=== PATIENT | male | born 1950 | race Caucasian/White ===

== ENCOUNTER → 2018-01-22 | Day surgery (SDC) | payer MEDICARE, OTHER ==
[~2018-01-22] MED LIST: ALBUTEROL SULFATE 2.5 MG/3 ML NEBU. NEB PRN; ATROPINE 0.5 MG/5 ML DISP.SYRIN. IV PRN; LIDOCAINE 2% PF Vial for OR 5 ML VIAL. ONE; LISI10TA2 PO; NALOXONE 0.4 MG/ML VIAL. IV PRN; ONDANSETRON PF 4 MG/2 ML VIAL. IV PRN; OXYC10TA57 PO; PANT40TA5 PO; PROPOFOL 40 ML IV ONE; TRAZ-85 PO
[2018-01-22] MEDS: IV RINGERS SOLUTION,LACTATED 1,000 ML IV SCH ×2 (07:24→10:50)
[2018-01-22 13:07] VITALS: BP 136/83
== END | disposition home or self-care (01) ==
LOC: SURG 10:00
PROVIDERS: ATTEND Internal Medicine Gastroenterology
DX: K57.30 Diverticulosis of large intestine without perforation or abscess without bleeding (principal); I10 Essential (primary) hypertension; Z98.890 Other specified postprocedural states; Z79.899 Other long term (current) drug therapy
CPT/HCPCS: 45380; J2704; J7120; J2001

== ENCOUNTER → 2018-04-01 | Outpatient (CLI) | payer MEDICARE, OTHER ==
[2018-01-22 13:07] VITALS: BP 136/83
[~2018-04-01] MED LIST changes: -ALBUTEROL SULFATE 2.5 MG/3 ML NEBU. NEB PRN; -ATROPINE 0.5 MG/5 ML DISP.SYRIN. IV PRN; +IOHEXOL 240 MG/ML 50ML VIAL. ONE; -LIDOCAINE 2% PF Vial for OR 5 ML VIAL. ONE; -NALOXONE 0.4 MG/ML VIAL. IV PRN; -ONDANSETRON PF 4 MG/2 ML VIAL. IV PRN; -PROPOFOL 40 ML IV ONE
[2018-04-01 09:24] LABS: CREATININE 1.1 mg/dL (0.7-1.3); GFR 66.4
[2018-04-01] MEDS: IOHEXOL 300 MG/ML 75 ML VIAL. IV ONE (09:27)
[2018-04-01] MEDS: IOHEXOL 240 MG/ML 50ML VIAL. PO ONE (09:28)
--- NOTE | 2018-04-01 10:36 | RAD ---
Indication:PAIN/LUMP IN LEFT GROIN MEDIAL LEG NEAR SYMPHYSIS. PAIN EXTENDS UP INTO PELVIS NEAR PELVIC RIM.LUMP HAS NOT GOTTEN LARGER BUT AREA IS MORE PAINFUL OVER THE LAST FOUR MONTHS. TWO HERNIA SURGERIES DONE IN 2016 TECHNIQUE: CT abdomen and pelvis with IV contrast with multiplanar reformats. COMPARISON: None FINDINGS: Heart is normal in size. No pericardial or pleural effusion. Clear lung bases. Liver, spleen, pancreas, adrenals within normal limits. Gallstones noted. No pericholecystic fluid or inflammatory changes. No nephrolithiasis or hydronephrosis. No enlarged retroperitoneal or pelvic adenopathy. No free pelvic fluid or ascites. There is mild diffuse wall thickening of the distal colon from the level of transverse colon to rectosigmoid colon. Fat-containing left inguinal hernia measuring 3.9 x 3.0 cm. Enlarged prostate measuring 5.1 x 4.1 cm. Urinary bladder demonstrates no radiopaque stone or focal lesion. No suspicious bony lesion. IMPRESSION: 1. Small fat-containing left inguinal hernia. 2. Mild diffuse long segment wall thickening of the distal colon which may be secondary to collapsed state or mild colitis. Correlate with symptoms. 3. Cholelithiasis without imaging evidence of acute cholecystitis. 4. Mildly enlarged prostate. Correlate with physical exam and PSA. Electronically signed by: Ruddy Porter DO (04/01/2018 10:31 AM) [id number]
== END | disposition home or self-care (01) ==
LOC: CT 08:07
PROVIDERS: ATTEND Surgery
DX: K40.90 Unilateral inguinal hernia, without obstruction or gangrene, not specified as recurrent (principal); K80.20 Calculus of gallbladder without cholecystitis without obstruction; N40.0 Benign prostatic hyperplasia without lower urinary tract symptoms; I10 Essential (primary) hypertension
CPT/HCPCS: 36415; 74177; 82565; Q9966; Q9967

== ENCOUNTER → 2018-04-09 | Day surgery (SDC) | payer MEDICARE, OTHER ==
[~2018-04-09] MED LIST changes: +ALBUTEROL SULFATE 2.5 MG/3 ML NEBU. NEB PRN; +ATROPINE 0.5 MG/5 ML DISP.SYRIN. IV PRN; -IOHEXOL 240 MG/ML 50ML VIAL. ONE; +IV RINGERS SOLUTION,LACTATED 1,000 ML IV SCH; +LIDOCAINE 2% PF Vial for OR 5 ML VIAL. ONE; +NALOXONE 0.4 MG/ML VIAL. IV PRN; +ONDANSETRON PF 4 MG/2 ML VIAL. IV PRN; +PROPOFOL 40 ML IV ONE; +TRAZ-120 PO; -TRAZ-85 PO; +diphenhydrAMINE 50 MG/ML VIAL IV PRN
[2018-04-09 11:47] VITALS: BP 144/55
== END | disposition home or self-care (01) ==
LOC: SURG 09:34
PROVIDERS: ATTEND Internal Medicine Gastroenterology
DX: R14.0 Abdominal distension (gaseous) (principal); R10.10 Upper abdominal pain, unspecified; R19.7 Diarrhea, unspecified; I10 Essential (primary) hypertension; Z79.899 Other long term (current) drug therapy; Z90.49 Acquired absence of other specified parts of digestive tract; Z98.890 Other specified postprocedural states; Z87.19 Personal history of other diseases of the digestive system
CPT/HCPCS: 43239; J2704; J7120; J2001

== ENCOUNTER → 2018-05-17 | Outpatient (CLI) | payer MEDICARE, OTHER ==
[2018-04-09 11:47] VITALS: BP 144/55
[~2018-05-17] MED LIST changes: -ALBUTEROL SULFATE 2.5 MG/3 ML NEBU. NEB PRN; -ATROPINE 0.5 MG/5 ML DISP.SYRIN. IV PRN; -IV RINGERS SOLUTION,LACTATED 1,000 ML IV SCH; -LIDOCAINE 2% PF Vial for OR 5 ML VIAL. ONE; -NALOXONE 0.4 MG/ML VIAL. IV PRN; -ONDANSETRON PF 4 MG/2 ML VIAL. IV PRN; -PROPOFOL 40 ML IV ONE; -diphenhydrAMINE 50 MG/ML VIAL IV PRN
--- NOTE | 2018-05-17 14:32 | RAD ---
Indication:Upper abdominal pain and diarrhea. TECHNIQUE: Grayscale, color Doppler and spectral waveform is of the abdomen obtained. COMPARISON:None FINDINGS: Visualized pancreas is within normal limits. Pancreatic tail not visualized during bowel gas. No aortic aneurysm. IVC within normal limits. Gallstones noted. No pericholecystic fluid or gallbladder wall thickening. Main portal vein is patent with hepatopedal flow. CBD measures 4 mm in diameter and is within normal limits. Liver measures 14 cm in longest dimension and is normal in size with diffuse increased echogenicity. Right kidney measures 10 cm in length without hydronephrosis. Left kidney measures 11 cm in length without hydronephrosis. Spleen measures 10 cm in length and is normal in size. IMPRESSION: 1. Cholelithiasis without imaging evidence of acute cholecystitis. 2. Mild hepatic steatosis. Electronically signed by: Ruddy Porter DO (05/17/2018 2:29 PM) [facility]
== END | disposition home or self-care (01) ==
LOC: US 08:29
PROVIDERS: ATTEND Internal Medicine Gastroenterology
DX: K80.20 Calculus of gallbladder without cholecystitis without obstruction (principal); K76.0 Fatty (change of) liver, not elsewhere classified; R19.7 Diarrhea, unspecified
CPT/HCPCS: 76700

== ENCOUNTER → 2018-09-06 | Outpatient (CLI) | payer MEDICARE, OTHER ==
[2018-04-09 11:47] VITALS: BP 144/55
[~2018-09-06] MED LIST changes: +BARIUM SULFATE 60% 355 ML SUSP PO ONE
--- NOTE | 2018-09-06 15:42 | RAD ---
Examination: SMALL BOWEL SERIES History: Chronic diarrhea Comparison/Correlation: 04/01/2018 CT abdomen and pelvis with oral contrast Findings: Assistant Nurse Manager views were obtained. Right upper quadrant surgical clips and suture material are present. Right lower pelvic mildly distended small bowel loop is present. Oral contrast was administered. On the initial image with the patient prone, contrast is identified to already been the right lower quadrant within jejunum. Contrast reaches the hepatic flexure of the colon by 40 minutes. Distention of small bowel is normal. No suspicious filling defects. No significant distention to suggest obstruction. Impression: No obstruction. No suspicious filling defects. Ascending colon is not seen. Correlate with surgical history. Electronically signed by: Henri Hdz MD (09/06/2018 3:39 PM) [facility]
== END | disposition home or self-care (01) ==
LOC: RAD 08:09
PROVIDERS: ATTEND Internal Medicine Gastroenterology
DX: K63.89 Other specified diseases of intestine (principal); K52.9 Noninfective gastroenteritis and colitis, unspecified
CPT/HCPCS: 74250

== ENCOUNTER → 2019-05-05 | Outpatient (CLI) | payer MEDICARE, OTHER ==
[2018-04-09 11:47] VITALS: BP 144/55
[~2019-05-05] MED LIST changes: +BARIUM SULFATE 0.1% 450 ML SUSP PO ONE; -BARIUM SULFATE 60% 355 ML SUSP PO ONE; +CONTRAST GIVEN MC PRN; +IOHEXOL 240 MG/ML 50ML VIAL. PO ONE; +IOHEXOL 300 MG/ML 75 ML VIAL. IV ONE
[2019-05-05 11:21] LABS: CREATININE 1.3 mg/dL (0.7-1.3); GFR 54.6
--- NOTE | 2019-05-06 05:57 | RAD ---
CT enterography, CT abdomen pelvis with contrast. HISTORY: Diarrhea, irritable bowel syndrome CT scan the abdomen pelvis was done before and after 60 mL Omnipaque IV contrast. The patient drank low-density volumen oral contrast. Lung bases are clear. There is no effusion. A liver lesion is not identified. The patient's had a cholecystectomy. Spleen and adrenal glands are normal. There is no renal calculus on the precontrast images. The patient's had previous partial right hemicolectomy. Postcontrast the liver is normal in appearance. Spleen and adrenal glands are unremarkable. A pancreatic lesion is not identified. There are incidental simple renal cysts. There is no renal mass or hydronephrosis. Prostate is generous in size. There is no dilated small bowel or bowel obstruction. There is no abnormal wall enhancement of the small bowel. The distal small bowel is not optimally distended with the oral contrast. There is fluid in the colon. There is not evidence that would suggest inflammatory bowel disease of the small bowel. There is mild wall enhancement of the rectosigmoid colon which is nonspecific, a mild colitis is possible. 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 IMPRESSION: 1. No bowel obstruction. 2. Previous right hemicolectomy. 3. Small bowel pattern is unremarkable. 4. Possible mild wall enhancement of the rectosigmoid colon, a mild colitis is possible. PQRS Compliance Statement: One or more of the following individualized dose reduction techniques were utilized for this examination: 1. Automated exposure control 2. Adjustment of the mA and/or kV according to patient size 3. Use of iterative reconstruction technique Electronically signed by: Christ Vargas MD (05/06/2019 5:54 AM) [id number]
== END | disposition home or self-care (01) ==
LOC: CT 10:39
PROVIDERS: ATTEND Internal Medicine Gastroenterology
DX: N28.1 Cyst of kidney, acquired (principal); M47.816 Spondylosis without myelopathy or radiculopathy, lumbar region; Z90.49 Acquired absence of other specified parts of digestive tract
CPT/HCPCS: 36415; 74170; 82565; 84520; Q9967

== ENCOUNTER → 2020-01-08 | Outpatient (CLI) | payer MEDICARE, OTHER ==
[2018-04-09 11:47] VITALS: BP 144/55
[~2020-01-08] MED LIST changes: -BARIUM SULFATE 0.1% 450 ML SUSP PO ONE; -CONTRAST GIVEN MC PRN; -IOHEXOL 240 MG/ML 50ML VIAL. PO ONE; -IOHEXOL 300 MG/ML 75 ML VIAL. IV ONE; -PANT40TA5 PO; +PANT40TA6 PO
[2020-01-08 12:52] LABS: BASO % 1 % (0-3); EOS # 0.1 x10^3/uL (0.0-0.7); EOS % 1 % (0-3); HEMATOCRIT 42.7 % (39.0-53.0); HEMOGLOBIN 14.2 g/dL (13.0-17.5); LYMPH # 1.5 x10^3/uL (1.0-4.8); LYMPH % 18 % (24-48); MEAN CORPUSCULAR HEMOGLOBIN 30 pg (25-35); MEAN CORPUSCULAR HGB CONC 33 g/dL (31-37); MEAN CORPUSCULAR VOLUME 91 fL (79-100); MONO # 0.6 x10^3/uL (0.0-1.1); MONO % 7 % (0-9); NEUT # 6.2 x10^3uL (1.8-7.7); NEUT % 73 % (31-73); PLATELET COUNT 316 x10^3/uL (140-400); RED CELL DISTRIBUTION WIDTH 12.7 % (11.5-14.5); WHITE BLOOD COUNT 8.4 x10^3/uL (4.0-11.0)
[2020-01-08 12:58] LABS: ALBUMIN 3.9 g/dL (3.4-5.0); ALBUMIN/GLOBULIN RATIO 1.1 (1.0-1.7); CALCIUM 8.5 mg/dL (8.5-10.1); CREATININE 1.4 mg/dL (0.7-1.3); GFR 50.1; POTASSIUM 3.8 mmol/L (3.5-5.1); TOTAL BILIRUBIN 0.6 mg/dL (0.2-1.0); TOTAL PROTEIN 7.4 g/dL (6.4-8.2)
== END ==
LOC: LAB 11:12
PROVIDERS: ATTEND Internal Medicine Gastroenterology
DX: K52.9 Noninfective gastroenteritis and colitis, unspecified (principal)
CPT/HCPCS: 80053; 83516; 85025; 87177; 87209